=== PATIENT | female | born 1965 | race Caucasian/White ===

== ENCOUNTER 2016-11-29 05:56 | Day surgery (SDC) | payer OTHER ==
[2016-11-29] VITALS (14 sets, daily range): BP systolic 97–139; BP diastolic 58–86; PULSE 56–84; RESP 10–20; O2SAT 94–100
[~2016-11-29] VITALS: Ht 162.6 cm; Wt 59.7 kg
[~2016-11-29 05:56] MED LIST: BENEDRYL PO; CeFAZolin Inj 2 GM in IV Premix 1 EACH IV ONE; Lidocaine-Prilo 2.5-2.5% 30 Gm Cream TOPICAL ONE; MAGN400T23 PO; POLY17PO6 PO; TOPI100C PO
[2016-11-29] MEDS ORDERED: Ondansetron 2 mg/mL 2 mL Inj ONE (05:57)
[2016-11-29] MEDS ORDERED: Propofol 10,000 mCg/mL 20 mL Inj ONE (05:57)
[2016-11-29] MEDS ORDERED: Dexamethasone 4 mg/mL Inj ONE (05:57)
[2016-11-29] MEDS ORDERED: Lactated Ringer's 1,000 ML IV ONE (06:22)
[2016-11-29] MEDS ORDERED: CeFAZolin 2 Gm/50 mL D5W Duplex Bag IV ONE (06:23)
[2016-11-29] MEDS ORDERED: HYDR-3090 PO (06:53)
[2016-11-29] MEDS ORDERED: TRAM50TA2 PO (06:53)
[2016-11-29] MEDS ORDERED: Lactated Ringer's 500 ML IV PRN (07:15)
[2016-11-29] MEDS ORDERED: Lactated Ringer's 1,000 ML IV SCH (07:15)
[2016-11-29] MEDS ORDERED: Ondansetron 2 mg/mL 2 mL Inj IVPUSH PRN (07:15)
[2016-11-29] MEDS ORDERED: Phenylephrine 10,000 mCg/mL Inj IVPUSH PRN (07:15)
[2016-11-29] MEDS ORDERED: EPHEDrine Sulfate 50 mg/mL Inj IVPUSH PRN (07:15)
[2016-11-29] MEDS ORDERED: Dexamethasone 4 mg/mL Inj IVPUSH PRN (07:15)
--- NOTE | 2016-11-29 07:15 | PCM.HPANE ---
Patient Data Date of Service: Nov 29, 2016 (0720) Surgeon Admitting Provider: Attending Provider:Ebonie Lr MD Primary Care Physician:Sharee Meyers Other Provider:Fiona Aguayo Anesthesia Reason for Visit Right Kidney Stone Ht/WT & BMI Height (Feet): 5 Height (Inches): 4 Weight (Kilograms): 59.7 Body Mass Index 22.00 Allergies Coded Allergies: morphine (Verified Allergy, Mild, nausea and vomiting, 11/26/16) Past Anesthesia History Anesthesia History: Denies:: Abnormal Airway, Anesthesia Reactions, Difficult Intubation, Fam Anesthesia Reaction, Fam Malignant Hypertherm, Malignant Hyperthermia Diabetes History Hx Diabetes?: No MRSA MRSA: No Medications Hypertension Medication: No Home Meds Incl Beta Marcelle: No Reported Medications Hydrocodone-Acetaminophen 5-300 mg 1 Each Tablet1 Tablet PO Q4H PRN For Pain Ref 0 11/29/16 Tramadol 50 Mg [id number] Mg PO HS PRN For Pain Ref 0 11/29/16 Topiramate ER (Trokendi XR)100 Mg [id number] Mg PO DAILY 11/23/16 Polyethylene Glycol 3350 (Miralax)17 Gm Powd.pack17 Gm PO DAILY 11/23/16 [Benedryl] No Conflict Check50 Mg PO Q4-6H PRN PRN 11/23/16 Discontinued Reported Medications Magnesium Oxide (Mag-Oxide)400 Mg [id number] Mg PO DAILY 11/23/16 History History of ENT Problems?: Yes HEENT History: Positive for:: Sinus Problem (S/P SINUS SURGERY X2-2000) Denies:: Abnormal Airway Cataracts Difficult Intubation Dysphagia Glaucoma Hearing Problem Denture Type: None Teeth Condition: Within Normal Limits Hx of Heart Problems?: Yes Cardiovascular History: Denies:: AICD Abdominal Aortic Aneurism Atrial Fibrillation Cardiac Surgery Chest Pain Congestive Heart Failure Coronary Artery Disease Edema Heart Murmur Hypertension Irregular Heartbeat Pacemaker Peripheral Vascular Rheumatic Fever Thrombophlebitis Valvular Heart Disease Hx of Respiratory Problem?: Yes Respiratory History: Positive for:: Cough Denies:: Asthma COPD Chest Surgery Dyspnea Emphysema Hemoptysis Oxygen Administration Pneumonia Pulmonary Embolism Tuberculosis Use of C-PAP Machine Use of Inhalers / NEBS Hx Neurologic Problems?: Yes Neurological History: Positive for:: Headaches (daily headaches tx with trokendi xr, ) Denies:: Multiple Sclerosis Parkinson's Disease Seizures TIA Hx of GI Problems?: No Other GI Pertinent History: S/P UMBILICAL HERNIA RPR Hx of Problems?: Yes Genitourinary History: Positive for:: Kidney Stones (RT STONE=CURRENT PROBLEM C/OF HEMATURIA,RT FLANK & ABD PAIN) Denies:: HX of Hemodialysis Urinary Tract Infection HX of Peritoneal Dialysis: No Female Hx: Positive for:: Endometriosis Denies:: Currently Pelvic Inflammatory Problems with Breasts? Skin History: Denies:: History Skin Disorders? Pressure Ulcers Hx Musculoskeletal Problems?: Yes Musculoskeletal History: Denies:: Back Injury (C/OF LOWER BACK PAIN) Degenerative Joint Fibromyalgia Joint Replacement Musculoskeletal Trauma Myasthenia Gravis Osteoarthritis Rheumatoid Arthritis Systemic Lupus Hx of Psycho/Social Problems?: No Hx Surgeries?: Yes (TVH/LT OVARIAN CYSTECTOMY,SINUS X2,JAW,UMBILICAL HERNIA RPR ) Hx Any Other Health Problems?: Yes Other History: Positive for:: Hospitalization (2000) Denies:: Cancer Endocrine Disease Thyroid Disease History Blood Transfusions: Positive for:: Accept Blood Products? Denies:: Blood Transfusions Hx Diabetes: No Hx Alcohol Use: NoHx Substance Use: NoHave You Smoked inLast 12 mo: No Stop/Bang S-Snoring: Do You Snore Loudly: No T-Tired: feel tired, fatigued: No O-Obsered: Observed not breath: No P-Blood Pressure: treated: No B- Body Mass Index > 35 kg/m2: No A- Age over 50: Yes N- Neck Large Circumference: No G- Gender Male: No JONES Total Score: 1 JONES Risk Assessment: Low Risk, <3 Yes Risk Assessment Category Category 1A: Patient has history of documented sleep apnea, and HAS NOT received any narcotic, sedative or anesthesia administration during this stay. Category 1B: Patient has history of documented sleep apnea, and HAS received any narcotic , sedative or anesthesia administration during this stay Category 2: Patient has SUSPECTED Obstructive Sleep Apnea, and HAS received any narcotic , sedative or anesthesia administration during this stay. Category 3: Patient has SUSPECTED Obstructive Sleep Apnea and HAS NOT received narcotic, sedative or anesthesia administration during this stay. Category 4: Outpatient in Procedural Areas with known sleep apnea or who screen positive for High Risk via the STOP/BANG questionnaire. Exam Exam Vital Signs Vital Signs Date Time Temp Pulse Resp B/P Pulse Ox O2 Delivery O2 Flow Rate FiO2 7/13/17 06:33 36.3 84 16 99/66 97 Room Air General Appearance: Alert, Oriented X3 HEENT/AIRWAY: MP 1 Lungs: Clear to Auscultation Heart: Exam Unremarkable Meds/Labs/Diagnostics Admission Meds Current Medications Lactated Ringer's (Lr) 1,000 ml @ ud STK-MED ONCE IV Last administered on 11/29t 06:22; Start 11/29/16 at 06:22; Stop 11/29/16 at 06:23; Status DC Plan Impression Patient chart reviewed, patient interviewed and anesthestic plan with risks, benefits, and alternatives discussed, and informed consent obtained. NPO per Anesth. Guidelines: Yes ASA Physical Status: ASA1 Normal Healthy Anesthetic Plan: GA Bene/Risks/Altern/Consents: Yes HP Complete Prior to Induction: Yes Oneil Leach MD Nov 29, 2016 07:15
--- NOTE | 2016-11-29 08:33 | PCM.ANEP1 ---
Post Anesthesia PACU Phase 1 Assessment Vital Signs 97, 18, 100%, 139/86, 36.6 Vital Signs Date Time Temp Pulse Resp B/P Pulse Ox O2 Delivery O2 Flow Rate FiO2 11/29/16 06:33 36.3 84 16 99/66 97 Room Air Anesthetic Administered: GA Level of Alertness: Awake, talking VAZ's with Equal Strength: Yes Pain: No Pain Scale Score: 0 Nausea or Vomiting: No CV Function & Hydration Stable: Yes Airway Device: none Oxygen Delivery: Simple Mask Lungs: Clear to Auscultation Dermatome Level: Full Sensation Summary uneventful GA PACU Phase 2 Assessment Complications: No Follow up Care: No Patient Instructions Provided: N/A Oneil Leach MD Nov 29, 2016 08:33
[2016-11-29] MEDS ORDERED: Ondansetron 8 mg ODT Tablet PO PRN (08:35)
[2016-11-29] MEDS ORDERED: HYDROcodone-APAP 5-325 mg Tablet PO PRN (08:35)
[2016-11-29] MEDS: fentaNYL-PF 50 mCg/mL 2 mL Inj IVPUSH PRN ×2 (08:44→08:57)
[2016-11-29] MEDS: MetoCLOpramide 5 mg/mL 2 mL Inj IVPUSH PRN ×2 (08:47→10:13)
[2016-11-29] MEDS ORDERED: HYDROmorphone 0.5 mg/0.5 mL iSecure Syringe ONE ×3 (09:17→10:11)
[2016-11-29] MEDS ORDERED: HYDROmorphone 1 mg/mL Inj IVPUSH PRN (09:20)
[2016-11-29] MEDS ORDERED: Belladonna Alk-Opium 60 mg Rectal Suppository RECTAL ONE (09:30)
[2016-11-29] MEDS ORDERED: Phenazopyridine 97.5 mg Tablet PO PRN (09:30)
[2016-11-29] MEDS ORDERED: Belladonna Alk-Opium 60 mg Rectal Suppository RECTAL PRN (09:30)
--- NOTE | 2016-11-29 09:38 | DRSVH ---
PROCEDURE: X-RAY KUB ([id number]) INDICATIONS: RIGHT KIDNEY STONE TECHNIQUE: One view of the abdomen acquired. COMPARISON: [facility], CR, XR KUB, 10/26/2016, 14:47. FINDINGS: Surgical changes and devices: None. Bowel: Bowel gas pattern is normal. Soft tissues: No suspicious abdominal calcifications. Unchanged appearance of calcifications overlyi ng the right renal shadow. Pelvic calcifications are unchanged and suggestive of phleboliths. Visuali zed solid organ contours appear normal in size. Bones: No suspicious bony lesions. IMPRESSION: Unchanged calcifications overlying the right renal shadow. Dictated by: Nica Frazier M.D. on 11/29/2016 at 9:35 Approved by: Nica Frazier M.D. on 11/29/2016 at 9:36
[2016-11-29] MEDS ORDERED: EPHEDrine Sulfate 50 mg/mL Inj ONE (10:15)
[2016-11-29] MEDS ORDERED: hydrOXYzine Inj 50 MG/1 mL SDV IM ONE ×2 (10:16→10:30)
[2016-11-29] MEDS ORDERED: EPHEDrine Sulfate 50 mg/mL Inj IM ONE (10:35)
--- NOTE | 2016-11-30 13:22 | OP ---
[address] [address] OPERATIVE REPORT PATIENT: ARUN DIAZ : 1965 MR#: [id number] ADMIT: 11/29/2016 JOB ID: [id number] DATE OF SURGERY: 11/29/2016 SURGEON: Ebonie Lr MD PROCEDURE: Right-sided extracorporeal shock wave lithotripsy and right-sided double-J stent placement. ANESTHESIA: General. PREOPERATIVE DIAGNOSIS(ES): Large renal pelvis calcification. POSTOPERATIVE DIAGNOSIS(ES): Large renal pelvis calcification. INDICATIONS: The patient is a 51-year-old woman with newly diagnosed renal calculus 1.5 cm in greatest dimension electing extracorporeal shockwave lithotripsy as treatment modality for her stone. Given the size, we discussed stent placement risks and benefits and she elects to go ahead and proceed. PROCEDURE IN DETAIL: After appropriate informed consent was obtained, the patient was brought to the operating room. She received IV antibiotics, Ancef, prior to onset of the procedure. SCDs were placed. Adequate general anesthesia was induced. She was carefully placed in the dorsal position and all pressure points carefully padded. Cleaned, prepped, and draped in the usual sterile fashion. Rigid scope was introduced in patient's urethra. Right-sided stone was visible on fluoroscopy. We advanced a guidewire into the right ureteral orifice, easily up into good position in the renal pelvis. We advanced over this a 6-Sinhala x 24 cm double-J stent over the wire under fluoroscopic and direct visual guidance into good position with stone. We had a curl in the renal pelvis and a curl in the patient's bladder. Once the wire was withdrawn, drainage was nice. We drained the bladder completely and then repositioned the patient carefully in the supine position, in the appropriate location for the Lithotripter head. All pressure points again were carefully padded. She was treated with a total of 2500 shocks escalating rate starting out at 60 with a pause at 200, power escalation to 5. Break-up was excellent. The shock rate was increased to 80 once it was apparent stone was breaking up nicely. The patient tolerated the procedure well. There was minimal skin erythema at the location of the shock wave head. She was awakened and taken in stable condition to the postanesthesia care unit.
== END 2016-11-29 23:59 | disposition home or self-care (01) ==
LOC: SAS 05:56
PROVIDERS: ATTEND Urology
DX: N20.0 Calculus of kidney (principal)
CPT/HCPCS: 50590; 52332; 74000; C2617; J0690; J1100; J1170; J2250; J2405; J2765; J3010; J3410; J7120

== ENCOUNTER 2016-12-03 16:58 | Emergency (ER) | payer OTHER ==
[~2016-12-03] VITALS: Ht 162.6 cm; Wt 56.8 kg
[~2016-12-03 16:58] MED LIST changes: -CeFAZolin Inj 2 GM in IV Premix 1 EACH IV ONE; +HYDR-3090 PO; -Lidocaine-Prilo 2.5-2.5% 30 Gm Cream TOPICAL ONE; -MAGN400T23 PO; +TRAM50TA2 PO
[2016-12-03 17:06] VITALS: BP 125/86; PULSE 84; RESP 20; O2SAT 100
[2016-12-03 18:04] LABS: BASOPHILS % (AUTO) 0 % (0-3); EOSINOPHILS % (AUTO) 0 % (0-5); MONOCYTES % (AUTO) 4.4 % (4-12); Mean Corpuscular Hemoglobin 30.9 pg (27.0-35.0); NEUTROPHILS % (AUTO) 89.5 % (40-74); Platelet Count 268 bil/L (150-400)
[2016-12-03 18:25] LABS: Magnesium 1.9 mg/dL (1.6-2.6)
[2016-12-03 20:14] VITALS: BP 133/86; PULSE 79; RESP 15; O2SAT 96
--- NOTE | 2016-12-03 20:43 | ED.REPORT ---
HPI-Abd Pain F 40 and Over Date of Service Dec 03, 2016 ED Provider: Ti Garcia DO Pt is a 51 year old female with a history of recent kidney stones treated with lithotripsy who presents to the ED complaining of RLQ abdominal pain onset 4 days ago. She c/o associated dizziness, nausea, vomiting, fever (101 F), and radiating pain to her pelvis. She denies hematuria. The pt reports that her lithotripsy was 4 days ago and her abdominal pain has been worsening since. Pt reports that she took medication for her fever with relief. Nursing Notes Stated Complaint: PAIN & FEVER Chief Complaint: Female Abdominal Pain Nursing Notes Reviewed: Yes Allergies: Coded Allergies: morphine (Verified Allergy, Mild, nausea and vomiting, 11/26/16) Scheduled Polyethylene Glycol 3350 (Miralax) 17 Gm Powd.pack 17 GM PO DAILY Topiramate ER (Trokendi XR) 100 Mg Capsule 100 MG PO DAILY Scheduled PRN ([Benedryl]) 50 MG PO Q4-6H PRN PRN PRN Hydrocodone-Acetaminophen 5-300 mg (Hydrocodone-Acetaminophen 5-300 mg) 1 Each Tablet 1 TABLET PO Q4H PRN PRN For Pain Tramadol (Tramadol) 50 Mg Tablet 50 MG PO HS PRN PRN For Pain General Time Seen by MD: 20:43 Chief Complaint Abdominal pain Hx Obtained From: Patient Arrived By: Walk-in Sudden in Onset?: No Onset Occurred: 4 days ago Symptom Duration: Since onset Location: : RLQ Quality: Painful Radiation: : Pelvis Severity: Current: Moderate Severity: Maximum: Moderate Recent Healthcare: Recent doctor visit Similar Sx Previous: Yes Past Medical History Past Medical History Kidney stones treated with lithiotripsy Past Surgical History TVH Sinus x2 Umbilical hernia repair Smoking History Never Smoker Social History Alcohol Use: "Social" Drug Use: Denies drug use Other Social History: Good social support Ambulatory Status Independent Review of Systems Constitutional: Reports: Fever GI: Reports: Abdominal pain, Nausea, Vomiting Female: Reports: Pelvic pain, Denies: Hematuria Complete sys rev & neg: except as marked. Neurologic: Reports: Dizziness Physical Exam Vital Signs Vital Signs (First) Date Time Temp Pulse Resp B/P Pulse Ox O2 Delivery O2 Flow Rate FiO2 12/03/16 17:06 37 84 20 125/86 100 Room Air Initial VS: Reviewed Head / Eyes: Atraumatic, Normocephalic Neck: Supple, Full range of motion Extremities: Vascular intact, Neuro intact Skin: Warm, Dry, No cyanosis Neurologic: Alert, Oriented, Nonfocal Psychiatric: Mood/affect normal, Behavior normal General/Constitutional: Awake, Alert, Cooperative Respiratory / Chest: Atraumatic, Breath sounds NL, Breath sounds = bilat Cardiovascular: Heart rate NL, Regular rhythm, Heart sounds NL Abdomen: Atraumatic, Soft Tenderness/Guarding/Rebound: Positive: Tender RLQ... (Mild) Back: Atraumatic, Full range of motion Interpretation & Diagnostics Lab Results Interpretation Result Diagram: 12/03/16 1753 12/03/16 1753 Test 12/03/16 17:53 12/03/16 21:38 White Blood Count 8.2th/mm3 (3.8-10.1) Red Blood Count 4.17mil/mm3 (3.90-5.20) Hemoglobin 12.9g/dL (12.0-15.6) Hematocrit 39.2% (35.0-46.0) Mean Corpuscular Volume 94.0fL (81-100) Mean Corpuscular Hemoglobin 30.9pg (27.0-35.0) Mean Corpuscular Hemoglobin Concent 32.9% (32.0-37.0) Red Cell Distribution Width 12.7% (12.3-15.4) Platelet Count 268bil/L (150-400) Neutrophils (%) (Auto) 89.5% (40-74) Lymphocytes (%) (Auto) 6.0% (14-46) Monocytes (%) (Auto) 4.4% (4-12) Eosinophils (%) (Auto) 0% (0-5) Basophils (%) (Auto) 0% (0-3) Sodium Level 137mEq/L (134-144) Potassium Level 4.2mEq/L (3.5-5.2) Chloride Level 101mEq/L (97-108) Carbon Dioxide Level 22mmol/L (18-29) Blood Urea Nitrogen 19mg/dL (6-24) Creatinine 0.81mg/dL (0.57-1.00) Estimat Glomerular Filtration Rate 107mL/min (>59) Glucose Level 126mg/dL (60-99) Calcium Level 9.8mg/dL (8.5-10.1) Magnesium Level 1.9mg/dL (1.6-2.6) Total Bilirubin 0.4mg/dL (0.0-1.2) Aspartate Amino Transf (AST/SGOT) 15U/L (0-50) Alanine Aminotransferase (ALT/SGPT) 7U/L (0-32) Alkaline Phosphatase 99U/L (25-150) Total Protein 7.4g/dL (6.4-8.4) Albumin 4.3g/dL (3.4-5.0) Lipase 17U/L (13-60) Hold [place] Top Tube Received (Received) Urine Color Dark yellow (YELLOW) Urine Appearance Hazy (CLEAR,HAZY) Urine pH 6.5 (5.0-8.0) Urine Specific [place] 1.020 (1.003-1.035) Urine Protein 300mg/dL (NEG,TRACE) Urine Glucose (UA) 250mg/dL (NEGATIVE) Urine Ketones 15mg/dL (NEGATIVE) Urine Occult Blood Large (NEGATIVE) Urine Nitrite Positive (NEGATIVE) Urine Bilirubin Moderate (NEGATIVE) Urine Ictotest Positive (Negative) Urine Urobilinogen 4.0mg/dL (NORMAL) Urine Leukocyte Esterase Moderate (NEGATIVE) Urine RBC Packed/hpf (0-2) Urine WBC 6-10/hpf (0-5) Urine Epithelial Cells None/hpf (NONE-MOD) Urine Crystals None seen (NONE SEEN) Urine Bacteria None/hpf (NONE-FEW) Urine Hyaline Casts None/lpf (NONE) Urine Granular Casts None seen (NONE SEEN) Urine Waxy Casts None seen (NONE SEEN) Urine Red Blood Cell Casts None seen (NONE SEEN) Urine White Blood Cell Casts None seen (NONE SEEN) Urine Mucus None seen (None Seen) Urine Trichomonas None seen (NONE SEEN) Urine Yeast None (NONE SEEN) Urinalysis Comment None Urine Culture Reflexed Indicated Re-Eval/Medical Decision Source of Hx: Old records Re-Evaluation/Progress : Time of Eval: 22:38 )( Re-Eval Abdomen: Soft Re-Evaluation/Progress Note: Pt rechecked. She reports that she is hungry and would like to go home. Appendicitis seems far less likely. Informed pt of plan for discharge. Pt understands and agrees with plan for discharge. F/U instructions and RTER warnings given. All questions addressed. Counseled Regarding: Diagnosis, Lab results, Need for follow-up, When/why to return to ED Discharge & Departure Primary Impression: Right lower quadrant abdominal pain Additional Impression: Renal colic Disposition: Home Discharge Condition All VS Reviewed: Yes Condition: Stable Patient Instructions: Acute Abdominal Pain (ED), Kidney Stones (ED) Additional Instructions: Most likely the pain is related to you passing fragments of kidney stone from the lithotripsy. Your white blood cell count is normal. Appendicitis seems less likely but this is still in the differential. I am glad that you are feeling better and that you have a good appetite. These are both signs that it is not your appendix. However if the pain returns and it cannot be easily improved upon by the Percocet then I want to come back in here and we will CAT scan again looking at your appendix. Otherwise take 1-2 Percocet every 6 hours as needed for pain. Take Bactrim twice daily because your urine shows signs of an infection. Follow up closely with your urologist. Do not drive tonight. Do not drive or drink alcohol or consume acetaminophen while taking the Percocet. Referrals: Sharee Meyers (PCP) Dalia Wyatt MD Attestation Portions of this note were transcribed by Lucrecia Boyer. I, Dr. Garcia personally performed the history, physical exam and medical decision-making; I reviewed and confirmed the accuracy of the information in the transcribed note. Signed by : Torie Parker, 12/03/16 and 23:40. copies to: Sharee Meyers Todd P DO Dec 03, 2016 20:43 Lucrecia Burnham Dec 03, 2016 21:28
[2016-12-03] MEDS ORDERED: Ondansetron 2 mg/mL 2 mL Inj IVPUSH PRN (20:55)
[2016-12-03] MEDS ORDERED: HYDROmorphone 0.5 mg/0.5 mL iSecure Syringe IVPUSH PRN (20:55)
[2016-12-03] MEDS ORDERED: 0.9% Sodium Chloride 1,000 ML IV ONE (20:55)
[2016-12-03 21:49] LABS: APPEARANCE,URINE HAZY (CLEAR,HAZY); COLOR,URINE DARK YELLOW (YELLOW); OCCULT BLOOD,URINE LARGE (NEGATIVE); PH,URINE 6.5 (5.0-8.0)
[2016-12-03 21:52] LABS: ICTOTEST,URINE POSITIVE (Negative)
[2016-12-03 22:18] VITALS: BP 99/65; PULSE 81; RESP 16; O2SAT 96
[2016-12-03] MEDS ORDERED: _oxyCODONE/APAP 5-325 mg Tablet PO PRN (22:45)
[2016-12-03 23:25] VITALS: BP 96/54; PULSE 92; RESP 16; O2SAT 95
== END 2016-12-03 23:26 | disposition home or self-care (01) ==
LOC: SED 16:58
DX: N23 Unspecified renal colic (principal); Z88.5 Allergy status to narcotic agent
CPT/HCPCS: 36415; 80053; 81000; 83690; 83735; 85025; 87086; 96361; 96374; 96375; 99285; J1170; J1885; J2405; J7030